=== PATIENT | male | born 1990 | race Hispanic/Latino ===

== ENCOUNTER 2018-09-30 10:58 | Emergency (ER) | payer OTHER, SELFPAY ==
[2018-09-30] MEDS ORDERED: TETANUS & DIPHTHERIA TOX,ADULT 0.5 ML VIAL ONE (11:36)
[2018-09-30 11:41] LABS: Absolute Lymphocytes (CBC) 1.4 K/uL (0.7-4.9); Absolute Monocytes 0.8 K/uL (0.1-1.3); Absolute Neutrophil 9.4 K/uL (1.8-8.0); Basophils % 0.8 % (0-1.3); Eosinophils % 3.9 % (0-4.4); Hematocrit 39.4 % (39.6-49.0); Lymphocytes % 11.6 % (15.3-44.8); MPV 8.6 fL (7.6-11.3); Monocytes % 6.9 % (3.3-12.3); RBC Red Blood Cell Count 4.65 M/uL (4.33-5.43)
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
[2018-09-30 13:23] LABS: ALT/SGPT 30 U/L (12-78); AST/SGOT 19 U/L (15-37); Albumin 3.7 g/dL (3.4-5.0); Alkaline Phosphatase 86 U/L (45-117); BUN Blood Urea Nitrogen 16 mg/dL (7-18); Bicarbonate 26 mmol/L (21-32); Bilirubin Direct < 0.1 mg/dL (0-0.2); Bilirubin Total 0.4 mg/dL (0.2-1.0); Glucose Level 112 mg/dL (74-106); Lipase 67 U/L (73-393); Potassium 3.8 mmol/L (3.5-5.1); Protein, Total 7.2 g/dL (6.4-8.2); Sodium Level 143 mmol/L (136-145)
[2018-09-30] MEDS ORDERED: LIDOCAINE 1% MPF 30 ML VIAL ONE (13:55)
[2018-09-30 14:06] LABS: Urine Blood 1+ (NEG); Urine Glucose 2+ (NEG); Urine Protein 1+ (NEG); Urine pH 5.5 (5.0-7.0)
[2018-09-30] MEDS ORDERED: MORPHINE 4 MG/ML SYR ONE (14:30)
[2018-09-30] MEDS ORDERED: KETOROLAC 30 MG/ML INJ ONE (14:30)
[2018-09-30] MEDS ORDERED: ONDANSETRON 4 MG/2 ML VIAL ONE (14:30)
[2018-09-30 15:15] LABS: Urine Bacteria <20 /HPF (NONE SEEN); Urine Culture Reflex Order NOT NEEDED; Urine Mucus 2+ /HPF (NONE SEEN)
--- NOTE | 2018-09-30 15:19 | EKG ---
Test Date: 2018-09-30 Test Time: 14:04:22 Rag Inspector: DELMI MEASUREMENT RESULTS: Intervals: Rate: 74 WI: 206 QRSD: 92 QT: 400 QTc: 444 Stone: P: 49 WI: 206 QRS: 23 T: 36 INTERPRETIVE STATEMENTS: Normal sinus rhythm Normal ECG No previous ECG available for comparison Electronically Signed On 09-30-18 15:18:13 CDT by Deejay Neely
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
[2018-09-30 16:12] LABS: Urine Blood 1+ (NEG); Urine Glucose NEGATIVE (NEG); Urine Protein 1+ (NEG); Urine Specific Gravity 1.025 (1.005-1.030)
[2018-09-30] MEDS ORDERED: SMZ./TMP. 800/160 MG TABLET ONE (16:22)
== END 2018-09-30 16:30 | disposition home or self-care (01) ==
LOC: ER 10:58
DX: S20.222A Contusion of left back wall of thorax, initial encounter (principal); S20.212A Contusion of left front wall of thorax, initial encounter; S80.12XA Contusion of left lower leg, initial encounter; S51.812A Laceration without foreign body of left forearm, initial encounter; S41.112A Laceration without foreign body of left upper arm, initial encounter; V49.9XXA Car occupant (driver) (passenger) injured in unspecified traffic accident, initial encounter; Z88.1 Allergy status to other antibiotic agents; Z23 Encounter for immunization
CPT/HCPCS: 36415; 71046; 72040; 72170; 80048; 80076; 81003; 81015; 83690; 85025; 86850; 86900; 86901; 90471; 90714; 93005; 96374; 96375; 99285; J2405